=== PATIENT | male | born 1985 | race African-American/Black ===

== ENCOUNTER 2019-04-13 17:54 | Emergency (ER) | payer OTHER ==
[~2019-04-13] VITALS: Ht 180.3 cm; Wt 85.0 kg
[2019-04-13 19:15] LABS: HEMATOCRIT 40.9 % (42.0-52.0); HEMOGLOBIN 13.6 g/dl (13.5-17.5); MEAN CORPUSCULAR HEMOGLOBIN 28.3 pg (27.0-33.0); MEAN CORPUSCULAR HGB CONC 33.3 g/dl (32.0-36.5); MEAN CORPUSCULAR VOLUME 85.2 fl (80.0-96.0); PLATELET COUNT, AUTOMATED 254 10^3/uL (150-450); WHITE BLOOD COUNT 7.3 10^3/uL (4.0-10.0)
[2019-04-13] MEDS ORDERED: NS 1,000 ML IV ONE ×2 (19:15→20:15)
[2019-04-13 19:54] LABS: ALBUMIN 4.3 GM/DL (3.2-5.2); ALT/SGPT 39 U/L (12-78); BILIRUBIN,DIRECT 0.1 MG/DL (0.0-0.2); BILIRUBIN,TOTAL 0.4 MG/DL (0.2-1.0); BLOOD UREA NITROGEN 12 MG/DL (7-18); CALCIUM LEVEL 9.3 MG/DL (8.5-10.1); CARBON DIOXIDE LEVEL 30 MEQ/L (21-32); CHLORIDE LEVEL 104 MEQ/L (98-107); CPK CREATINE PHOSPHOKINASE 1814 U/L (39-308); CREATININE FOR GFR 1.25 MG/DL (0.70-1.30); GLOMERULAR FILTRATION RATE > 60.0 (>60); GLUCOSE, FASTING 95 MG/DL (70-100); MAGNESIUM LEVEL 2.3 MG/DL (1.8-2.4); MB/CK RELATIVE INDEX 0.31 (< OR =4); POTASSIUM SERUM 3.6 MEQ/L (3.5-5.1); SODIUM LEVEL 143 MEQ/L (136-145); TOTAL PROTEIN 7.7 GM/DL (6.4-8.2); TROPONIN I < 0.02 NG/ML (< 0.10)
[2019-04-13 20:22] LABS: MYOGLOBIN SCREEN, URINE POSITIVE (NEGATIVE)
[2019-04-13 20:30] LABS: APPEARANCE, URINE CLEAR (CLEAR); BACTERIA, URINE AUTO NEGATIVE (NEGATIVE); BILIRUBIN, URINE AUTO NEGATIVE (NEGATIVE); BLOOD, URINE BLOOD 2+ (NEGATIVE); COLOR, URINE YELLOW (YELLOW); GLUCOSE, URINE (UA) AUTO NEGATIVE (NEGATIVE); KETONE, URINE AUTO NEGATIVE (NEGATIVE); LEUKOCYTE ESTERASE, URINE AUTO NEGATIVE (NEGATIVE); MUCUS, URINE SMALL (NEGATIVE); NITRITE, URINE AUTO NEGATIVE (NEGATIVE); PROTEIN, URINE AUTO NEGATIVE (NEGATIVE); RBC, URINE AUTO 15 /HPF (0-3); SPECIFIC GRAVITY URINE AUTO 1.017 (1.002-1.035); SQUAMOUS EPITHELIAL CELL UR AU 0 /HPF (0-6); UROBILINOGEN, URINE AUTO 0.2 mg/dL (0.0-2.0); WBC, URINE AUTO 0 /HPF (0-3)
[2019-04-13 21:15] VITALS: BP 113/73
--- NOTE | 2019-04-13 22:35 | ECGEPIP ---
[facility] - ED Test Date: 2019-04-13 Pat Name: DANIKA FOWLER Department: Room: - Gender: Male Management Development Specialist: [email or web address] : 1985 Requested By: EVY BELLE PA-C. Order Number: [id number] Reading MD: Raffi Barbour Measurements Intervals [place] Rate: 64 P: 49 HI: 162 QRS: 54 QRSD: 89 T: 42 QT: 387 QTc: 401 Interpretive Statements SINUS RHYTHM WITH SINUS ARRHYTHMIA BENIGN EARLY REPOLARIZATION NO PRIORS FOR COMPARISON Electronically Signed on 04-13-2019 22:34:40 EDT by Raffi Barbour
== END 2019-04-13 21:38 | disposition home or self-care (01) ==
LOC: M ED 17:54
DX: E86.0 Dehydration (principal); R74.8 Abnormal levels of other serum enzymes

== ENCOUNTER → 2019-04-27 | Outpatient (CLI) | payer OTHER ==
--- NOTE | 2019-04-27 20:46 | ECHO ---
DATE OF PROCEDURE: 04/27/2019 REFERRING PHYSICIAN: TAISHA Montana PATIENT LOCATION: Outpatient. REASON FOR EXAM: Syncope. 2D MEASUREMENTS: IVS: 1.0 cm LV: 4.5 cm LVPW: 1.1 cm LA: 3.2 cm Aorta: 3.3 cm RV: 2.8 cm IVC: 2.0 cm DOPPLER MEASUREMENTS: Peak velocity across the aortic valve: 1.5 m/s Peak velocity across the LVOT: 1.3 m/s Mitral E: 0.81, Mitral A: 0.62 with a ratio of 1.3 Maximum tricuspid valve velocity: 2.4 m/s 2D COMMENTS: Normal left ventricular size, wall thickness, and normal global left ventricular systolic ejection fraction. The estimated left ventricular systolic ejection fraction is 65-70%. Normal left atrium. Normal right atrium and right ventricle. The atrial septum appeared to be normal without evidence of defect or shunt. Normal aortic root. No pericardial effusion seen. The aortic valve, mitral valve, tricuspid valve, and pulmonic valve appeared to be normal. The proximal pulmonary artery branches also appeared to be normal. The inferior vena cava is borderline enlarged. DOPPLER: It detects trace mitral regurgitation and trace to mild tricuspid regurgitation. The calculated pulmonary artery systolic pressure is about 30 mmHg. Assessment of the left ventricular diastolic function was normal. IMPRESSION 1. Normal global left ventricular systolic and diastolic function. 2. Trace mitral regurgitation. 3. Trace to mild tricuspid regurgitation with probably a mildly elevated pulmonary artery systolic pressure.
== END ==
LOC: M CARPUL 09:06
PROVIDERS: ATTEND Physician Assistant
DX: I34.8 Other nonrheumatic mitral valve disorders (principal)